=== PATIENT | female | born 1970 | race Caucasian/White ===

== ENCOUNTER 2024-06-22 09:26 | Emergency (ER) | payer BC, SELFPAY ==
[2024-06-22 09:41] VITALS: BP 129/67
--- NOTE | 2024-06-22 10:21 | ED.GENMED ---
History of Present Illness
<Daron Snow MD, Resident - Last Filed: 06/22/24 15:53>
General
Chief Complaint: Vaginal Bleeding
Time Seen by Provider: 06/22/24 10:02
History of Present Illness
History of Present Illness:
33-year-old female, Ms. Ela Lee, presented to the ER reporting bleeding per vagina since yesterday. Patient reports having heavy bleeding, ramona red blood along with clots and intermittent cramping pelvic pain . Patient also reports
having an episode of syncope at around 9 AM today, when she was sitting in couch, not sure how long she passed out, but to this it might be approximately 15 to 30 seconds. Her last menstrual period-04/16/2024. Patient has a history of endometrial
polyps removed 6 months ago. Her last Pap smear was 1 year ago and was normal. Patient is not on any blood thinners. Patient denies headache, fever/chills, chest pain, palpitations, bladder/bowel disturbances.
Past History
<Daron Snow MD, Resident - Last Filed: 06/22/24 15:53>
Past History
ED Past Medical History: Hypercholesterolemia, Psychiatric (Medications include Wellbutrin and Prozac) and Other (MVP )
Social History
Tobacco: Non-smoker
Alcohol: Occasional
Personal:
Living: with family
Review of Systems
<Daron Snow MD, Resident - Last Filed: 06/22/24 15:53>
Review of Systems
All Other Systems: ROS reviewed and negative except as documented in HPI and ROS
Phy Exam
<Daron Snow MD, Resident - Last Filed: 06/22/24 15:53>
Physical Exam
Physical Exam:
GEN: Well appearing, NAD, WDWN
Eyes: PERRLA, EOMs intact, no scleral icterus
HENT: NCAT, oral mucosa moist, no JVD, no cervical adenopathy.
Lungs: CTAB, no wheezes, rales, rhonchi, normal chest wall excursion
Cardiac: RRR, S1-S2+, no peripheral edema. Radial pulses 2+ bilat
Abdomen: S, NT, ND, NABS, no masses or hepatosplenomegaly
Pelvic exam: see notes below.
Neuro: AO x 3, no focal deficits to BUE/BLE, normal sensation throughout
Skin: No rashes, petechiae. Normal color, no pallor or jaundice.
Psych: Calm, cooperative, proper hygiene
Genitourinary Exam Female
Exam Female: lesions, no adnexal tenderness, no mass and vaginal bleeding
Vaginal Exam: blood
Vaginal Bleeding: moderate
Visual exam of cervix: os closed
Uterus: nontender
Course
<Veneela Bruno Snow MD, Resident - Last Filed: 06/22/24 15:53>
Orders/Labs/Results
Orders:
Orders
06/22/24 09:44
Electrocardiogram (*1) Urgent
Reason for Study: Syncope
EKG- Treatment ONCE
06/22/24 10:19
CMP [Comprehensive Metabolic Panel] Urgent
Complete Blood Count/With Diff Urgent
HCG, Serum Qualitative Screen Urgent
Comment: SERUM B HCG QUALITATIVE ADDED ON BY FLOOR 2:10PM 06-22-24
06/22/24 11:03
PTT Urgent
Prothrombin Time Urgent
06/22/24 11:10
Transvaginal US [US Pelvis W Transvag Combined] Urgent
Comment:
Reason For Exam: Bleeding
06/22/24 11:18
Ibuprofen [Motrin] 600 mg PO NOW STA
06/22/24 12:13
0.9% Sodium Chloride 500 ml [Nss] 500 ml IV BOLUS
06/22/24 14:09
Add On- LAB Urgent
Tests Added?: serum B-HCG, qualitative
Abnormal Lab Results
06/22/24
10:19
RBC 4.12 L 10^6/uL
(4.20-5.40)
MCH 31.1 H pg
(27.0-31.0)
Glucose 103 H mg/dl
(70-99)
06/22/24 10:19
06/22/24 10:19
Vital Signs
Initial and Last Documented VS:
Initial Vital Signs
Temp Pulse Resp BP Pulse Ox
98.6 F 59 20 129/67 99
06/22/24 09:41 06/22/24 09:41 06/22/24 09:41 06/22/24 09:41 06/22/24 09:41
Last Documented Vital Signs
Temp Pulse Resp BP Pulse Ox
98.6 F 67 18 110/87 100
06/22/24 09:41 06/22/24 16:03 06/22/24 16:03 06/22/24 16:03 06/22/24 16:03
<Jaime Last MD - Last Filed: 06/23/24 10:57>
Orders/Labs/Results
Orders:
Orders
06/22/24 09:44
Electrocardiogram (*1) Urgent
Reason for Study: Syncope
EKG- Treatment ONCE
06/22/24 10:19
CMP [Comprehensive Metabolic Panel] Urgent
Complete Blood Count/With Diff Urgent
HCG, Serum Qualitative Screen Urgent
Comment: SERUM B HCG QUALITATIVE ADDED ON BY FLOOR 2:10PM 06-22-24
06/22/24 11:03
PTT Urgent
Prothrombin Time Urgent
06/22/24 11:10
Transvaginal US [US Pelvis W Transvag Combined] Urgent
Comment:
Reason For Exam: Bleeding
06/22/24 11:18
Ibuprofen [Motrin] 600 mg PO NOW STA
06/22/24 12:13
0.9% Sodium Chloride 500 ml [Nss] 500 ml IV BOLUS
06/22/24 14:09
Add On- LAB Urgent
Tests Added?: serum B-HCG, qualitative
Abnormal Lab Results
06/22/24
10:19
RBC 4.12 L 10^6/uL
(4.20-5.40)
MCH 31.1 H pg
(27.0-31.0)
Glucose 103 H mg/dl
(70-99)
06/22/24 10:19
06/22/24 10:19
Vital Signs
Initial and Last Documented VS:
Initial Vital Signs
Temp Pulse Resp BP Pulse Ox
98.6 F 59 20 129/67 99
06/22/24 09:41 06/22/24 09:41 06/22/24 09:41 06/22/24 09:41 06/22/24 09:41
Last Documented Vital Signs
Temp Pulse Resp BP Pulse Ox
98.6 F 67 18 110/87 100
06/22/24 09:41 06/22/24 16:03 06/22/24 16:03 06/22/24 16:03 06/22/24 16:03
<Daron Snow MD, Resident - Last Filed: 06/22/24 15:53>
MDM/Problems Addressed
Differential Diagnosis Includes:
Dysfunctional uterine bleeding, uterine polyps, fibroids, endometriosis, endometrial cancer.
MDM/Problems Addressed:
CBC, CMP unremarkable
PT, PTT, INR�wnl
Transvaginal ultrasound�unremarkable
Pain control with ibuprofen.
hcg negative.
Patient is clinically stable to be discharged home.
Discussed with the patient about starting her on medroxyprogesterone.
Advised follow-up primary care physician and [facility] within a week.
<Daron Snow MD, Resident - Last Filed: 06/22/24 15:53>
*Critical Care Note
Total Time (30-74mins, 75-104mins- exclusive of procedures): Not Applicable
ED Attending Note
<Daron Snow MD, Resident - Last Filed: 06/22/24 15:53>
-
Portions of this chart may have been created with voice recognition software.� Occasional wrong word or��sound alike� substitutions may have occurred due to the inherent limitations of voice recognition software.
<Jaime Last MD - Last Filed: 06/23/24 10:57>
ED Attending Note
Patient seen and examined by attending physician: Yes
ED Attending Note:
Patient who has had irregular menses for the past 6 months, presents to ED secondary to significant vaginal bleeding since yesterday. This morning, patient had brief episode of syncope, secondary to severe lower abdominal cramping sensation
preceding bleeding episode. At the time of evaluation ED, patient is without any complaints. Denies abdominal pain. Denies nausea or vomiting. Denies fever or chills. Denies dizziness. Denies chest palpitations. Denies weakness. Denies
shortness of breath.
Physical Exam
General: mild distress, not acutely ill. afebrile
Head: nc/at. eomi
Neck: supple. normal range of motion
Abdomen: normal bowel sounds. not tender.
Neuro: alert and oriented. no focal neurological deficits
Skin: no rash
Psychiatric: well kept. interactive and cooperative
Extremities: no edema. no calf tenderness.
Pelvic exam performed by resident physician, accompanied by nursing staff - no sig. findings. Pt reports less bleeding during observation. H/H stable and Pelvic US without any acute findings. Pt will be started on OCP and advise close f/u with her
primary metal riveter physician, , who has been made aware of patient's presentation in ED.
Discharge Plan
Departure
Patient Disposition: Home (Routine Discharge)
Date of Disposition: 06/22/24
Time of Disposition: 15:47
Patient with high blood pressure during this ER visit?: No
Condition: Good
Discharge Problem:
Bleeding per vagina
Prescriptions:
New
medroxyprogesterone 10 mg tablet
10 mg PO TID 10 Days Qty: 30 0RF
No Action
bupropion HCl 100 MG tablet
300 mg PO DAILY
fluoxetine 20 MG capsule
20 mg PO DAILY
methylphenidate HCl [Concerta] 36 MG tablet extended release 24hr
36 mg PO DAILY
cyclobenzaprine 10 MG tablet
10 mg PO TIDPRN PRN (Reason: back pain) Qty: 21 0RF
prednisone 20 MG tablet
40 mg PO DAILY Qty: 8 0RF
Referrals:
Lila Montenegro DO [Family Provider] -
Activity Restrictions/Additional Instructions:
Advised follow-up with primary care in a week.
Advised follow-up with [facility] in a week.
Interventions
Interventions:
*Risk Screen - Suicide Last Done: 06/22/24 10:22
*General Assessment Last Done: 06/22/24 10:22
*Neglect/Abuse Screening Last Done: 06/22/24 10:22
ED- Fall Risk Assessment Last Done: 06/22/24 10:22
*Nursing Disposition Last Done: 06/22/24 16:04
ED-Female Genitourinary Assessment Last Done: 06/22/24 10:22
Discharge Date and Time
Discharge Date/Time: 06/22/24 16:05
Print Language: KYRGYZ
[2024-06-22 10:22] VITALS: BMI 28.2
[2024-06-22 10:37] LABS: % Basophils 0.9 % (0-2); % Eosinophils 1.2 % (0-6); % Immature Granulocytes 0.3 % (0-0.5); % Lymphocytes 26.4 % (20.5-51.1); % Monocytes 9.3 % (1.7-9.3); % Neutrophils 61.9 % (42.2-75.2); Absolute Basophils 0.1 10^3/uL (0-0.2); Absolute Eosinophils 0.1 10^3/uL (0-0.7); Absolute Lymphocytes 1.8 10^3/uL (1.2-3.4); Absolute Monocytes 0.6 10^3/uL (0.1-0.6); Absolute Neutrophils 4.2 10^3/uL (1.4-6.5); Hemoglobin 12.8 g/dL (12.0-16.0); Mean Corp Hgb Conc. 33.7 g/dL (33.0-37.0); Mean Corpuscular Hgb 31.1 pg (27.0-31.0); Mean Corpuscular Volume 92.2 fL (81.0-99.0); Nucleated Red Blood Cells % 0 %; Platelet Count 249 10^3/uL (130-400); Red Blood Cell Count 4.12 10^6/uL (4.20-5.40); Red Cell Dist. Width 12.7 % (11.5-14.5); White Blood Cell Count 6.7 10^3/uL (4.8-10.8)
[2024-06-22 10:38] LABS: ALT (SGPT) 20 U/L (0-35); AST (SGOT) 25 U/L (14-36); Albumin 4.4 g/dl (3.5-5.0); Alkaline Phosphatase 57 U/L (38-126); Blood Urea Nitrogen 14 mg/dl (7-17); Calcium 9.5 mg/dl (8.4-10.2); Carbon Dioxide 29 mmol/L (22-30); Chloride 100 mmol/L (98-107); Estimated Creatinine Clearance 80 ml/min; Glucose 103 mg/dl (70-99); Potassium 4.4 mmol/L (3.5-5.1); Sodium 136 mmol/L (135-145); Total Bilirubin 0.6 mg/dl (0.2-1.3); Total Protein 6.6 g/dl (6.3-8.2); eGFR > 60.00
[2024-06-22] MEDS: MOTRIN 600 MG PO (11:21)
[2024-06-22 11:26] VITALS: BP 124/76
[2024-06-22 11:30] LABS: APTT 28.7 Sec (23.4-35.0); INR 0.97; PT 12.6 Sec (11.4-14.6)
[2024-06-22 14:56] LABS: HCG, Serum Qualitative Screen Negative
[2024-06-22 16:03] VITALS: BP 110/87
== END 2024-06-22 16:05 | disposition home or self-care (01) ==
LOC: EMR 09:26
PROVIDERS: Student in an Organized Health Care Education/Training Program; EMERGENCY PHYSICIAN Emergency Medicine; FAMILY PHYSICIAN Family Medicine
DX: R55 Syncope and collapse (principal); N93.9 Abnormal uterine and vaginal bleeding, unspecified; R10.2 Pelvic and perineal pain; N92.6 Irregular menstruation, unspecified; E78.00 Pure hypercholesterolemia, unspecified; I34.1 Nonrheumatic mitral (valve) prolapse; Z88.1 Allergy status to other antibiotic agents; Z91.040 Latex allergy status; Z91.048 Other nonmedicinal substance allergy status
CPT/HCPCS: 99284; 76830; 76856; 80053; 84703; 85025; 85610; 85730; 93005

== ENCOUNTER 2024-08-13 05:49 | Day surgery (SDC) | payer BC, SELFPAY ==
[2024-08-05 11:09] LABS: % Basophils 0.6 % (0-2); % Eosinophils 1.1 % (0-6); % Immature Granulocytes 0.4 % (0-0.5); % Lymphocytes 15.6 % (20.5-51.1); % Monocytes 6.7 % (1.7-9.3); % Neutrophils 75.6 % (42.2-75.2); Absolute Basophils 0.1 10^3/uL (0-0.2); Absolute Eosinophils 0.1 10^3/uL (0-0.7); Absolute Lymphocytes 1.3 10^3/uL (1.2-3.4); Absolute Monocytes 0.5 10^3/uL (0.1-0.6); Absolute Neutrophils 6.1 10^3/uL (1.4-6.5); Hematocrit 37.7 % (37.0-47.0); Hemoglobin 12.4 g/dL (12.0-16.0); Mean Corp Hgb Conc. 32.9 g/dL (33.0-37.0); Mean Corpuscular Volume 94.3 fL (81.0-99.0); Mean Platelet Volume 10.1 fL (7.4-10.4); Nucleated Red Blood Cells % 0 %; Platelet Count 244 10^3/uL (130-400); Red Cell Dist. Width 13.3 % (11.5-14.5); White Blood Cell Count 8.1 10^3/uL (4.8-10.8)
[2024-08-05 11:53] LABS: Blood Urea Nitrogen 14 mg/dl (7-17); Calcium 9.4 mg/dl (8.4-10.2); Carbon Dioxide 27 mmol/L (22-30); Chloride 102 mmol/L (98-107); Glucose 91 mg/dl (70-99); Potassium 4.6 mmol/L (3.5-5.1); Sodium 139 mmol/L (135-145); eGFR > 60.00
[2024-08-05 11:59] LABS: Beta HCG Quantitative < 2.39 mIU/ml
[2024-08-13] VITALS (7 sets, daily range): BP systolic 92–104; BP diastolic 42–62; BMI 26.3
--- NOTE | 2024-08-13 09:50 | W.SUR.PREOP ---
Pre-Operative Surgical Note
-
I have examined this patient prior to the performance of the scheduled procedure.
The patient's condition is unchanged from the time of the current History and
Physical and the patient is able to undergo the scheduled procedure.
[2024-08-13] MEDS: TYLENOL 1000 MG PO (09:56)
[2024-08-13] MEDS: NEURONTIN 300 MG PO (09:56)
[2024-08-13] MEDS: NORMOSOL-R/PLASMALYTE-A 1000 IV (09:58)
--- NOTE | 2024-08-13 11:03 | W.IMMPOSTOP ---
Surgical Immed Post Op Note
-
Primary Surgeon: Rosibel Funez DO
Assisting Surgeon: none
Pre-op Diagnosis: Menorrhagia
Post-op Diagnosis: same
Procedure Performed: Hysteroscopy D&C
Anesthesia Type: MAC IV sedation
Specimen / Cultures: 1. endocervical curettings 2. endometrial curettings
Estimated Blood Loss: 5ml
Fluid deficit: 40ml
Complications: none
Operative Findings: Uterus sounds to 8cm, bilateral tubal ostia seen. Normal appearing ednometrial cavity, no evidence of polyp, tumor, mass.
Counts correct times 2.
Stable to recovery
== END 2024-08-13 12:16 | disposition home or self-care (01) ==
LOC: SDS 05:49
PROVIDERS: ATTENDING PHYSICIAN Obstetrics & Gynecology; FAMILY PHYSICIAN Family Medicine
DX: N85.01 Benign endometrial hyperplasia (principal); N92.0 Excessive and frequent menstruation with regular cycle
CPT/HCPCS: 58558; 88305; 36415; 80048; 84702; 85025; 86850; 86900; 86901

== ENCOUNTER → 2024-12-16 09:12 | Outpatient (REF) | payer BC, SELFPAY | LOC: HWRAD 09:12 | PROVIDERS: ATTENDING PHYSICIAN Family Medicine | DX: Z87.891 Personal history of nicotine dependence (principal) | CPT/HCPCS: 71271 ==